=== PATIENT | female | born 1965 | race Caucasian/White ===

== ENCOUNTER 2023-03-13 14:10 | Emergency (ER) | payer BC, OTHER ==
[~2023-03-13] VITALS: Ht 165.1 cm; Wt 131.5 kg
[2023-03-13 14:19] VITALS: BP_SYST 158
--- NOTE | 2023-03-13 14:26 | NUR ---
PT STATES HER PRIMARY DOCTOR WANTED AN CALF ULTRASOUND TO R/O DVT-"CLOT" DUE TO PAIN AND REDNESS.
--- NOTE | 2023-03-13 14:48 | NUR ---
PT SEEN BY DR. OHARA. ULTRASOUND ORDERED.
[2023-03-13] MEDS ORDERED: DICL20GE TP (16:41)
[2023-03-13 16:44] VITALS: BP_SYST 160
--- NOTE | 2023-03-13 16:49 | NUR ---
DR. CRUZ SPOKE W/ PT. DISCHARGE PLAN DISCUSSED. PT AGREES W/ D/C PLAN. IN GOOD SPIRITS.
== END 2023-03-13 16:48 | disposition home or self-care (01) ==
LOC: SED 14:10
DX: R22.41 Localized swelling, mass and lump, right lower limb (principal); I10 Essential (primary) hypertension; Z88.0 Allergy status to penicillin; Z88.2 Allergy status to sulfonamides; Z79.899 Other long term (current) drug therapy
CPT/HCPCS: 93971; 99284

== ENCOUNTER 2024-08-19 12:32 | Emergency (ER) | payer OTHER ==
[~2024-08-19] VITALS: Ht 160 cm; Wt 72.6 kg
[2024-08-19 12:32] VITALS: BP_SYST 133; PULSE 83; RESP 18; TEMP 97.8; O2SAT 91
[~2024-08-19 12:32] MED LIST: DICL20GE TP
[2024-08-19] MEDS ORDERED: HYDR-3927 PO (14:15)
[2024-08-19] MEDS ORDERED: IBUP-1969 PO (14:15)
[2024-08-19 14:40] VITALS: BP_SYST 139; PULSE 76; RESP 19; TEMP 97; O2SAT 97
== END 2024-08-19 14:42 | disposition home or self-care (01) ==
LOC: SED 12:32
DX: S83.8X1A Sprain of other specified parts of right knee, initial encounter (principal); I10 Essential (primary) hypertension; Z96.659 Presence of unspecified artificial knee joint; Z88.0 Allergy status to penicillin; Z88.2 Allergy status to sulfonamides; Z79.899 Other long term (current) drug therapy; X50.0XXA Overexertion from strenuous movement or load, initial encounter; Y93.89 Activity, other specified; Y92.89 Other specified places as the place of occurrence of the external cause; Y99.8 Other external cause status
CPT/HCPCS: 73564; 99283